=== PATIENT | female | born 1950 | race Caucasian/White ===

== ENCOUNTER 2023-01-19 16:51 | Emergency (ER) | payer MEDICARE, SELFPAY ==
[2023-01-19 16:54] VITALS: BP 160/86; PULSE 87; RESP 18; TEMP 36.8; O2SAT 96; BMI 35.0
--- NOTE | 2023-01-19 17:30 | EDS_ITS ---
HPI History of Present Illness Chief Complaint: Weakness Informant: patient and family Narrative Narrative: 72-year-old female presenting to the emergency room at concerns for weakness. Patient recently underwent 6 teeth extraction and has uppers but is not curre ntly wearing her lower plates yet. Shortly thereafter the extraction she underwent a laparoscopic cholecystectomy. She has been eating a lot of soft foods but not a lot of protein rich foods. She notes her urine is light yellow. Family came into town and saw her yesterday where she was looking okay. Today they were out at a [employer]. She was in a air conditioned area and they stated that she looked pale but jaundiced and looked like she was not feeling well. They decided to bring her to the emergency department for evaluation. Patient denies any syncope. No chest pain or shortness of breath. She has had sporadic diarrhea but otherwise normal bowel habits. No fever. PFSH PFSH Allergy/AdvReac Type Severity Reaction Status Date / Time amoxicillin Allergy Rash Verified 01/19/23 16:54 Penicillins Allergy Rash Verified 01/19/23 16:54 Sulfa (Sulfonamide Allergy Rash Verified 01/19/23 16:54 Antibiotics) Surgical History (Updated 01/19/23 @ 17:[address] Aleks Gaines DO) Hx of cholecystectomy Social History Smoking Status: Never smoker ROS ROS ED Constitutional Constitutional ED: Denies chills, fever(s) or weight loss Eyes Eyes: Denies change in vision or diplopia ENT ENT ED: Denies ear pain, rhinorrhea or sore throat Cardiovascular Cardiovascular: Denies chest pain, orthopnea, palpitations or racing heartbeat Respiratory/Chest Respiratory/Chest: Denies cough, dyspnea or orthopnea Gastrointestinal Gastrointestinal: Denies abdominal pain, diarrhea, nausea or vomiting Genitourinary Genitourinary ED: Denies dysuria, hematuria or urinary frequency Musculoskeletal Musculoskeletal: Denies arthralgias or myalgias Integumentary Denies abscess or rash Neurologic Neurologic: Denies headache(s) or weakness Psychiatric Psychiatric: Denies anxiety, depression, suicidal ideation or suicidal thoughts Endocrine Endocrinology: Denies polydipsia, polyphagia or polyuria Allergic/Immunologic Allergic/Immunologic ED: Denies mouth swelling, tongue swelling or urticaria EXAM Physical Exam Const Vital Signs: 01/19/23 16:54 01/19/23 17:12 Temperature 98.3 F Temperature Source Temporal Pulse Rate 87 Respiratory Rate 18 Respiratory Effort Normal Non-Labored Respiratory Pattern Normal Blood Pressure 160/86 H Blood Pressure Mean 110 Pulse Ox 96 Oxygen Delivery Method Room Air Positive well nourished, well developed and obese General Appearance ED: well developed Nutritional Appearance: obese HEENT Reports normocephalic, head/scalp atraumatic and moist mucous membranes Eyes PERRL and EOMs intact bilaterally Neck no lymphadenopathy, supple and no JVD Resp normal respiratory effort and clear to auscultation bilaterally Cardio regular rate, regular rhythm and no murmurs GI normal to inspection, nondistended, normoactive bowel sounds and non-tender Palpation: soft Back/Spine no CVA tenderness and normal ROM Extremity normal to inspection General Extremety ED: Negative for edema General Extremity: Negative for edema Neuro oriented x3 and CN's II-XII intact bilaterally Sensorium / Orientation: alert Motor Exam: strength 5/5 throughout Psych mental status grossly normal Mood & Affect: Negative for depressed or tearful Skin no rashes or lesions noted and no wounds MDM MDM MDM Narrative Medical decision making narrative: Basic blood work showed a white count of 8.2 him with three-point. Creatinine 1.04 BUN of 18. Urinalysis is negative. Total bilirubin is normal. EKG is in normal sinus rhythm. Patient received a liter of IV fluids and after the IV f luid she is much more talkative. Family states that she appears better and is more alert. The patient states that she feels better. Patient was encouraged to monitor fluid intake as well as increase protein in her diet as she has been very carb heavy since her 2 surgeries. She will follow-up with primary care return if worsening or concerns History & Record Review Discussion w/independent historian: Patient and Family Lab Data Attestation: I reviewed the patient's lab results. Labs: Laboratory Results - last 24 hr 01/19/23 01/19/23 17:10 18:17 WBC 8.2 RBC 4.27 Hgb 13.5 Hct 39.1 MCV 91.6 MCH 31.6 MCHC 34.5 RDW Std Deviation 42.7 RDW Coeff of Mimi 12.9 Plt Count 280 MPV 10.5 Immature Gran % (Auto) 0.500 Neut % (Auto) 64.5 Lymph % (Auto) 22.4 [place] % (Auto) 10.4 H Eos % (Auto) 1.8 Baso % (Auto) 0.4 Absolute Neuts (auto) 5.3 Absolute Lymphs (auto) 1.84 Nucleated RBC % 0 Sodium 137 Potassium 3.7 Chloride 105 Carbon Dioxide 25.0 Anion Gap 7 BUN 18 Creatinine 1.04 H Estim Creat Clear Calc 37.53 Est GFR (MDRD) Af Amer 67 Est GFR (MDRD) Non-Af 55 L BUN/Creatinine Ratio 17.3 Glucose 112 H Calcium 9.2 Total Bilirubin 0.20 Direct Bilirubin < 0.05 AST 20 ALT 20 Alkaline Phosphatase 116 Total Protein 7.5 Albumin 3.5 Globulin 4.0 Lipase 39 Urine Color Yellow Urine Clarity Sl. Cloudy Urine pH 6.0 Ur Specific [place] 1.015 Urine Protein Negative Urine Glucose (UA) Normal Urine Ketones Negative Urine Occult Blood Negative Urine Nitrite Negative Urine Bilirubin Negative Urine Urobilinogen Normal Ur Leukocyte Esterase 25 H Urine RBC 0 SEEN Urine WBC 0 SEEN Ur Squamous Epith Cells 0-5 SEEN Urine Bacteria 0 SEEN Urine Mucus 0 SEEN EKG Initial EKG: Attestation: I personally reviewed and interpreted this EKG as follows: Comments: Normal sinus rhythm ventricular rate of 80 bpm. No concerning features of ACS noted Discharge Plan Triage Chief Complaint: Weakness ED Provider: Aleks Gaines Dx/Rx/DC Orders Clinical Impression: Acute dehydration, Weakness Instructions: ED Weakness (Uncertain Cause) Primary Care Provider: Apolinar Puckett Referrals: Apolinar Puckett MD [Primary Care Provider] - 5-7 Days Disposition Disposition: Home, Self Care
--- NOTE | 2023-01-19 17:30 | EKG12_ITS ---
Test Reason : Blood Pressure : / mmHG Vent. Rate : 080 BPM Atrial Rate : 080 BPM P-R Int : 154 ms QRS Dur : 074 ms QT Int : 380 ms P-R-T Axes : 041 025 056 degrees QTc Int : 438 ms Normal sinus rhythm Nonspecific ST abnormality Abnormal ECG Confirmed by DONELL BROTHERS, EVA ([id number]), web editor YUNG FRASER ([id number]) on 01/22/2023 10:49:18 AM Referred By: Confirmed By:EVA MARLEY MD
[2023-01-19 17:46] LABS: Absolute Lymphocyte Count 1.84 X10^3/uL (0.83-4.51); Absolute Neutrophil Count 5.3 X10^3/uL (2.0-7.7); Basophil# 0.03 X10^3/uL; Basophil% 0.4 % (0-1); Eosinophil# 0.15 X10^3/uL; Eosinophils% 1.8 % (0-5); Hematocrit 39.1 % (37-47); Hemoglobin 13.5 g/dL (12.0-15.0); Lymphocyte # 1.84 X10^3/ul (0.83-4.51); Lymphocyte % 22.4 % (19-41); Mean Corp Hgb Conc 34.5 g/dL (32-36); Mean Corpuscular Hgb 31.6 pg (27.0-32.0); Mean Corpuscular Volume 91.6 fL (81-99); Mean Platelet Vol. 10.5 fl (6.2-12.0); Monocyte# 0.85 X10^3/uL; Monocyte% 10.4 % (0-10); NRBC Flagged by Analyzer 0 % (0-5); Neutrophil # 5.29 X10^3/uL (2.7-7.7); Neutrophil % 64.5 % (47-70); Platelet Count 280 K/mm3 (150-450); RBC Distribution Width CV 12.9 % (11.6-14.6); RBC Distribution Width SD 42.7 fl (35.1-43.9); Red Blood Count 4.27 M/mm3 (4.2-5.4); White Blood Count 8.2 K/mm3 (4.4-11.0)
[2023-01-19 18:01] LABS: AST(SGOT) 20 U/L (15-37); Alanine Aminotransfer ALT/SGPT 20 U/L (13-56); Albumin, Serum 3.5 g/dL (3.2-5.0); Alkaline Phosphatase 116 U/L (45-117); Anion Gap 7 (5-15); BUN 18 mg/dL (7-18); BUN/Creat Ratio 17.3 RATIO (10-20); Bilirubin, Direct < 0.05 mg/dL (0.00-0.30); Calcium,Total 9.2 mg/dL (8.5-10.1); Chloride 105 mmol/L (98-107); Creatinine, Serum 1.04 mg/dL (0.55-1.02); EST Glomerular Filtration Rate 55 mL/min (>60); Est Glom Filt Rate - Afr Amer 67 mL/min (>60); Estimated Creatinine Clearance 37.53 ml/min; Glucose 112 mg/dL (74-106); Lipase 39 U/L (13-75); Potassium 3.7 mmol/L (3.5-5.1); Protein, Total 7.5 g/dL (6.4-8.2); Sodium Level 137 mmol/L (136-145)
[2023-01-19] MEDS: 0.9% Normal Saline 1,000 ML 1000 ML IV (18:15)
[2023-01-19 18:23] LABS: Bacteria 0 SEEN /hpf (None Seen); Mucous, Urine 0 SEEN /hpf (<or=2+); Red Blood Cells-Urine 0 SEEN /hpf (0-5); White Blood Cells 0 SEEN /hpf (0-5)
[2023-01-19 18:28] LABS: Color, Urine Yellow (Yellow); Glucose, Dipstick Normal (Normal); Ketone-Dipstick Negative (Negative); Leukocyte Esterase-Dipstick 25 /ul (Negative); Nitrite-Dipstick Negative (Negative); Occult Blood-Urine Negative /ul (Negative); Protein-Dipstick Negative (Negative); Specific Gravity, Urine 1.015 (1.002-1.030); Urine Bilirubin Dipstick Negative (Negative); Urine Clarity Sl. Cloudy (Clear); Urine Urobilinogen Normal (Normal)
[2023-01-19 18:43] LABS: Squamous Epithelial Cells - UA 0-5 SEEN /hpf (5-10)
== END 2023-01-19 19:38 | disposition home or self-care (01) ==
PROVIDERS: Emergency Provider Emergency Medicine; PCP Family Medicine; Visit Provider Emergency Medicine
DX: E86.0 Dehydration (principal); R53.1 Weakness; E66.9 Obesity, unspecified
CPT/HCPCS: 80048; 80076; 81001; 83690; 85025; 93005; 96360; 99283; J7030; A4216

== ENCOUNTER 2023-02-20 14:33 | Emergency (ER) | payer MEDICARE, SELFPAY ==
[2023-02-20 14:35] VITALS: BP 143/89; PULSE 97; RESP 18; TEMP 37.1; O2SAT 99; BMI 34.4
--- NOTE | 2023-02-20 15:38 | CT_ITS ---
STUDY: CT ABDOMEN AND PELVIS WITH CONTRAST REASON FOR EXAM: Female, 72 years old. abdominal pain RADIATION DOSAGE (If Supplied By Facility): CTDIvol = ( 15.52 ) mGy, DLP = ( 1012.85 ) mGycm TECHNIQUE: Transaxial images were obtained from the dome of the diaphragm to the symphysis pubis without oral contrast. Oral and amp; IV Gastrografin and amp; 100mL Isovue-370 was administered. Sagittal and coronal images were reconstructed. Individualized dose optimization techniques were used for this CT. COMPARISON: None. FINDINGS: The visualized lung bases are unremarkable. Calcific coronary artery disease. Normal liver. Gallbladder not identified. Calcified splenic granulomas. Normal pancreas. Normal bilateral adrenal glands. 3 cm simple right renal cortical cyst. No further follow-up required as it appears simple/benign. Normal left kidney. Moderately large hiatal hernia. Normal small intestine. Oral contrast noted in the colon. Appendix not identified. Calcified plaque along the aorta and its branches. Normal inferior vena cava. Normal retroperitoneum. Normal urinary bladder. Uterus normal. Normal abdominal wall. Metallic hardware fixation pubic symphysis. CT/Abdomen/Pelvis WITH Contrast IMPRESSION: Moderately large hiatal hernia. No acute disease. Electronically Signed: Roberto Hdez MD at 18:11 EDT ,
--- NOTE | 2023-02-20 15:39 | EDS_ITS ---
HPI HPI - GI History of Present Illness Chief Complaint: Abd Pain Detail of Chief Complaint: Abdominal pain Informant: patient Narrative Narrative: Patient presents with abdominal pain that started 3 weeks ago. He has had off-and-on pain for months. Pain more continuous over the last 2 weeks. Several months ago she had her gallbladder removed. Patient states her pain is a 5 out of 10. Pain made worse with breathing at times and bending over or touching the area. She had no fever chills or sweats. She denies urinary symptoms. She was seen by her primary care physician 6 days ago and has not CAT scan ordered as an outpatient for tomorrow. Patient felt nauseated today. She has not vomited. Patient states that she has some chronic diarrhea since having her gallbladder resected. PFSH PFSH Allergy/AdvReac Type Severity Reaction Status Date / Time amoxicillin Allergy Rash Verified 02/20/23 14:35 Penicillins Allergy Rash Verified 02/20/23 14:35 Sulfa (Sulfonamide Allergy Rash Verified 02/20/23 14:35 Antibiotics) Surgical History (Updated 01/19/23 @ 17:[address] Aleks Gaines DO) Hx of cholecystectomy Social History Smoking Status: Never smoker ROS ROS ED Review of Systems ROS Unobtainable: other Constitutional Constitutional ED: Reports lethargy; Denies chills, fever(s), sweats or weight loss Eyes Eyes: Denies blurry vision, change in vision or diplopia ENT ENT ED: Denies rhinorrhea or sore throat Cardiovascular Cardiovascular: Denies chest pain, orthopnea or racing heartbeat Respiratory/Chest Respiratory/Chest: Reports dyspnea and dyspnea on exertion; Denies cough, orthopnea or sputum Gastrointestinal Gastrointestinal: Reports abdominal pain and nausea; Denies diarrhea or vomiting Genitourinary Genitourinary ED: Denies dysuria, hematuria or urinary frequency Musculoskeletal Musculoskeletal: Denies arthralgias, back pain, myalgias or neck pain Integumentary Denies abscess, Abrasions or rash Neurologic Neurologic: Denies headache(s) or weakness Psychiatric Psychiatric: Denies anxiety, depression or suicidal thoughts Endocrine Endocrinology: Denies polydipsia, polyphagia or polyuria Hematologic/Lymphatic Hematologic/Lymphatic: Denies easy bleeding, easy bruising or lymphadenopathy Allergic/Immunologic Allergic/Immunologic ED: Denies mouth swelling, tongue swelling or urticaria EXAM Physical Exam Const Vital Signs: 02/20/23 14:35 02/20/23 19:36 Temperature 98.8 F Temperature Source Temporal Pulse Rate 97 88 Respiratory Rate 18 16 Blood Pressure 143/89 H 135/78 H Blood Pressure Mean 107 97 Pulse Ox 99 99 Oxygen Delivery Method Room Air Positive well nourished and well developed General Appearance ED: well developed and NAD HEENT Reports TM's clear and moist mucous membranes normocephalic and atraumatic; Negative for trauma or tenderness Tympanic Membrane ED: Yes TM's clear Eyes PERRL and EOMs intact bilaterally General Eye ED: Negative for pale conjunctiva or scleral icterus Neck no lymphadenopathy, supple and no JVD General: Negative for tenderness Chest Wall inspection of chest normal and palpation of chest normal Chest: Negative for tenderness Resp normal respiratory effort and clear to auscultation bilaterally Effort and Inspection: Negative for respiratory distress or pain with movement Auscultation: Negative for rhonchi, wheezes or diminished lung sounds Cardio regular rate, regular rhythm, S1 normal heart sound, S2 normal heart sound and no murmurs Peripheral Pulses: pulses 2+ throughout GI normal to inspection, nondistended, normoactive bowel sounds, soft to palpation, non-distended and no masses GI Narrative: Tender to palpation over the right lower quadrant as well as suprapubic region and mild tenderness over left lower quadrant. There is no rebound, rigidity, or pedal signs. No mass palpated. No erythema or rashes noted to the abdominal wall. Back/Spine no CVA tenderness and no thoracic nor lumbar tenderness Extremity normal to inspection General Extremety ED: Negative for edema General Extremity: Negative for edema Neuro oriented x3, CN's II-XII intact bilaterally, no sensory deficits noted and gait normal Sensorium / Orientation: awake, alert, oriented to person, oriented to place and oriented to time Motor Exam: strength 5/5 throughout and strength abnormal Psych mental status grossly normal Skin no rashes or lesions noted and no wounds MDM MDM MDM Narrative Medical decision making narrative: Patient presents with right lower abdomen pain for months. On exam she is tender to the right lower quadrant. IV line established. Patient did not want thing for pain. CBC with differential obtained showed a normal white count of 10.6 with a hemoglobin of 14.9 and platelet count of 304. Chemistries unremarkable. LFTs unremarkable. Lactate was normal at 1.3. Urinalysis was normal. CT scan of the abdomen pelvis with IV and p.o. contrast showed no acute process other than a moderately large hiatal hernia. This point patient will be discharged to home advised to follow-up with her primary care physician within next 3 to 5 days. Advised return if worsening pain, fever, vomiting, or condition should worsen anyway. Lab Data Labs: Laboratory Results - last 24 hr 02/20/23 02/20/23 02/20/23 15:32 15:45 16:52 WBC 10.6 RBC 4.97 Hgb 14.9 Hct 45.7 MCV 92.0 MCH 30.0 MCHC 32.6 RDW Std Deviation 43.9 RDW Coeff of Mimi 13.1 Plt Count 304 MPV 10.6 Immature Gran % (Auto) 0.500 Neut % (Auto) 69.3 Lymph % (Auto) 18.0 L [place] % (Auto) 10.4 H Eos % (Auto) 1.3 Baso % (Auto) 0.5 Absolute Neuts (auto) 7.4 Absolute Lymphs (auto) 1.91 Nucleated RBC % 0 Sodium 138 Potassium 4.1 Chloride 105 Carbon Dioxide 27.0 Anion Gap 6 BUN 19 H Creatinine 1.06 H Estim Creat Clear Calc 36.83 Est GFR (MDRD) Af Amer 65 Est GFR (MDRD) Non-Af 54 L BUN/Creatinine Ratio 17.9 Glucose 109 H Lactic Acid 1.3 Calcium 10.0 Total Bilirubin 0.20 AST 14 L ALT 23 Alkaline Phosphatase 130 H Total Protein 8.2 Albumin 3.8 Globulin 4.4 H Albumin/Globulin Ratio 0.9 Urine Color Yellow Urine Clarity Clear Urine pH 6.0 Ur Specific [place] 1.015 Urine Protein Negative Urine Glucose (UA) Normal Urine Ketones Negative Urine Occult Blood Negative Urine Nitrite Negative Urine Bilirubin Negative Urine Urobilinogen Normal Ur Leukocyte Esterase Negative Urine RBC 0 SEEN Urine WBC 0 SEEN Ur Squamous Epith Cells 0 SEEN Urine Bacteria 0 SEEN Urine Mucus 0 SEEN Radiography Diagnostic Testing: Clinical Impression(s) from Imaging Studies Abdomen/Pelvis CT 02/20/23 15:38 IMPRESSION: Moderately large hiatal hernia. No acute disease. Electronically Signed: Roberto Hdez MD at 18:11 EDT , Discharge Plan Triage Chief Complaint: Abd Pain ED Provider: Gregg Navas Dx/Rx/DC Orders Clinical Impression: Abdominal pain Instructions: ED Abdominal Pain Unkn Cause Fem Primary Care Provider: Apolinar Puckett Referrals: Apolinar Puckett MD [Primary Care Provider] - 3-5 Days Disposition Disposition: Home, Self Care Discharge Date/Time: 02/20/23 19:37
[2023-02-20 15:45] LABS: Absolute Lymphocyte Count 1.91 X10^3/uL (0.83-4.51); Absolute Neutrophil Count 7.4 X10^3/uL (2.0-7.7); Basophil# 0.05 X10^3/uL; Basophil% 0.5 % (0-1); Eosinophil# 0.14 X10^3/uL; Eosinophils% 1.3 % (0-5); Hematocrit 45.7 % (37-47); Hemoglobin 14.9 g/dL (12.0-15.0); Lymphocyte # 1.91 X10^3/ul (0.83-4.51); Mean Corp Hgb Conc 32.6 g/dL (32-36); Mean Platelet Vol. 10.6 fl (6.2-12.0); Monocyte# 1.11 X10^3/uL; Monocyte% 10.4 % (0-10); NRBC Flagged by Analyzer 0 % (0-5); Neutrophil # 7.38 X10^3/uL (2.7-7.7); Neutrophil % 69.3 % (47-70); Platelet Count 304 K/mm3 (150-450); RBC Distribution Width CV 13.1 % (11.6-14.6); RBC Distribution Width SD 43.9 fl (35.1-43.9); Red Blood Count 4.97 M/mm3 (4.2-5.4); White Blood Count 10.6 K/mm3 (4.4-11.0)
[2023-02-20 16:00] LABS: ALB/GLOB Ratio 0.9 RATIO (0.9-2.4); AST(SGOT) 14 U/L (15-37); Alanine Aminotransfer ALT/SGPT 23 U/L (13-56); Albumin, Serum 3.8 g/dL (3.2-5.0); Alkaline Phosphatase 130 U/L (45-117); Anion Gap 6 (5-15); BUN 19 mg/dL (7-18); BUN/Creat Ratio 17.9 RATIO (10-20); Chloride 105 mmol/L (98-107); Creatinine, Serum 1.06 mg/dL (0.55-1.02); EST Glomerular Filtration Rate 54 mL/min (>60); Est Glom Filt Rate - Afr Amer 65 mL/min (>60); Estimated Creatinine Clearance 36.83 ml/min; Globulin 4.4 g/dL (2.2-4.2); Glucose 109 mg/dL (74-106); Potassium 4.1 mmol/L (3.5-5.1); Protein, Total 8.2 g/dL (6.4-8.2); Sodium Level 138 mmol/L (136-145)
[2023-02-20 16:28] LABS: Lactic Acid 1.3 mmol/L (0.4-1.9)
[2023-02-20] MEDS: 0.9% Normal Saline (1000mL) 1,000 ML 150 ML IV (16:29)
[2023-02-20 16:59] LABS: Bacteria 0 SEEN /hpf (None Seen); Mucous, Urine 0 SEEN /hpf (<or=2+); Red Blood Cells-Urine 0 SEEN /hpf (0-5); Squamous Epithelial Cells - UA 0 SEEN /hpf (5-10); White Blood Cells 0 SEEN /hpf (0-5)
[2023-02-20 17:13] LABS: Color, Urine Yellow (Yellow); Glucose, Dipstick Normal (Normal); Ketone-Dipstick Negative (Negative); Leukocyte Esterase-Dipstick Negative /ul (Negative); Nitrite-Dipstick Negative (Negative); Occult Blood-Urine Negative /ul (Negative); Protein-Dipstick Negative (Negative); Specific Gravity, Urine 1.015 (1.002-1.030); Urine Bilirubin Dipstick Negative (Negative); Urine Clarity Clear (Clear); Urine Urobilinogen Normal (Normal)
[2023-02-20 19:36] VITALS: BP 135/78; PULSE 88; RESP 16; O2SAT 99
== END 2023-02-20 19:37 | disposition home or self-care (01) ==
PROVIDERS: Emergency Provider Emergency Medicine; PCP Family Medicine; Visit Provider Emergency Medicine
DX: R10.9 Unspecified abdominal pain (principal)
CPT/HCPCS: 74177; 80053; 81001; 83605; 85025; 99283; J7030; Q9967

== ENCOUNTER 2024-06-11 19:20 | Emergency (ER) | payer MEDICARE, SELFPAY ==
[2024-06-11 19:21] VITALS: BP 153/88; PULSE 84; RESP 16; TEMP 36.7; O2SAT 98; BMI 34.4
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
[2024-06-11 21:25] VITALS: BP 149/80; PULSE 80; RESP 16; TEMP 36.7; O2SAT 98
== END 2024-06-11 21:27 | disposition home or self-care (01) ==
PROVIDERS: Emergency Provider Emergency Medicine; PCP Family Medicine; Visit Provider Emergency Medicine
DX: S09.90XA Unspecified injury of head, initial encounter (principal); S16.1XXA Strain of muscle, fascia and tendon at neck level, initial encounter; V89.2XXA Person injured in unspecified motor-vehicle accident, traffic, initial encounter
CPT/HCPCS: 70450; 72125; 99282

== ENCOUNTER → 2025-02-28 | Outpatient (CLI) | payer MEDICARE, SELFPAY ==
[2025-02-28 10:51] LABS: Hematocrit 38.9 % (37-47); Hemoglobin 13.0 g/dL (12.0-15.0); Immature Granulocytes Count 0.030 X10^3/uL (0.0-0.0); Mean Corp Hgb Conc 33.4 g/dL (32-36); Mean Corpuscular Volume 92.2 fL (81-99); Mean Platelet Vol. 11.4 fl (6.2-12.0); NRBC Flagged by Analyzer 0 % (0-5); Platelet Count 219 K/mm3 (150-450); RBC Distribution Width CV 13.2 % (11.6-14.6); RBC Distribution Width SD 44.5 fl (35.1-43.9); Red Blood Count 4.22 M/mm3 (4.2-5.4); White Blood Count 6.4 K/mm3 (4.4-11.0)
[2025-02-28 10:54] LABS: PTHIN 66 pg/mL (11-61)
[2025-02-28 12:23] LABS: AST(SGOT) 17 U/L (<=31); Alanine Aminotransfer ALT/SGPT 12 U/L (<=34); Albumin, Serum 4.1 g/dL (3.4-4.8); Alkaline Phosphatase 98 U/L (35-104); Anion Gap 10 (5-15); BUN 17 mg/dL (4-19); BUN/Creat Ratio 18.6 RATIO (10-20); Calcium,Total 9.9 mg/dL (7.6-11.0); Carbon Dioxide 25.5 mmol/L (21.0-32.0); Chloride 104 mmol/L (98-108); Cholesterol 203 mg/dL (<=200); Globulin 3.0 g/dL (2.2-4.2); Glucose 110 mg/dL (70-99); Low Density Lipoprotein Calc. 114 mg/dL; Potassium 4.3 mmol/L (3.3-5.1); Triglycerides 199 mg/dL; Very Low Density Lipoprotein 40 mg/dL (5-40); Vitamin D,25 Hydroxy 31.5 ng/mL (30-100); cholesterol:hdl ratio screen 4.15
== END | disposition home or self-care (01) ==
LOC: MTLAB 08:19
PROVIDERS: PCP Nurse Practitioner Family; Referring Provider Nurse Practitioner Family; Visit Provider Nurse Practitioner Family
DX: E20.9 Hypoparathyroidism, unspecified (principal); E55.9 Vitamin D deficiency, unspecified; I10 Essential (primary) hypertension; E78.5 Hyperlipidemia, unspecified
CPT/HCPCS: 36415; 80053; 80061; 82306; 83970; 84439; 84443; 85025

== ENCOUNTER → 2025-05-09 | Outpatient (CLI) | payer MEDICARE, SELFPAY ==
[2025-05-09 15:46] LABS: Ammonia 26.6 umol/L (11-51)
[2025-05-09 15:58] LABS: Magnesium 2.1 mg/dL (1.5-2.2); Vitamin B12 1293 pg/mL (180-914)
[2025-05-15 16:08] LABS: Folate, Hemolysate Test 382.0 ng/mL (Not Estab.); Folate, RBC (Hct) Test 42.1 % (34.0-46.6); Folates, RBC Test 907 ng/mL (>498); VITAMIN B6 3.8 ug/L (3.4-65.2); Vitamin B1, Thiamine 135.1 nmol/L (66.5-200.0)
== END | disposition home or self-care (01) ==
LOC: MTLAB 11:04
PROVIDERS: PCP Nurse Practitioner Family; Referring Provider Psychiatry & Neurology Neurology; Visit Provider Psychiatry & Neurology Neurology
DX: G25.0 Essential tremor (principal); G62.9 Polyneuropathy, unspecified; E03.9 Hypothyroidism, unspecified
CPT/HCPCS: 36415; 82140; 82607; 82747; 83735; 84207; 84425; 84443; 85014